=== PATIENT | female | born 1980 | race Caucasian/White ===

== ENCOUNTER 2016-11-28 09:03 | Emergency (ER) | payer OTHER ==
[2016-11-28] MEDS ORDERED: ONDANSETRON 4 MG/2 ML VIAL IVP ONE (09:36)
[2016-11-28] MEDS ORDERED: NS 1,000 ML IV ONE (09:36)
--- NOTE | 2016-11-28 09:38 | UCPHY ---
H & P Patient Type: New Time Seen by Provider: 11/28/16 09:28 HPI/ROS: Chief complaint: Right lower abdominal pain HPI: Patient presenting with 3 days of right lower abdominal pain. She has a history of ovarian cysts in the remote past and this feels somewhat similar. Has also had some periumbilical pain. Some nausea no vomiting, no diarrhea. No fevers or chills. Last menstrual. Was the end of last month however she has been irregular and has been having some increasing bloating and cramping over the last several months. Has never been . No vaginal discharge bleeding. ROS: 10 point Review of Systems is negative except as noted in the HPI. Physical exam: Gen: Awake, Alert, No Distress HEENT: Ears: Bilateral TMs are normal, no erythema or bulging. External auditory canals are clear. Nose: no rhinorrhea Eyes: PERRLA, EOMI Mouth: Moist mucosa Neck: Supple, no JVD Chest: nontender, lungs clear to auscultation Heart: S1, S2 normal, no murmur Abd: Soft, moderate right lower quadrant tenderness both at McBurney's point and in the right adnexa. No uterine tenderness, no left-sided abdominal tenderness. No upper abdominal tenderness, moderate voluntary guarding Back: no CVA tenderness, no midline tenderness Ext: no edema, non-tender Skin: no rash Neuro: CN II-XII intact, Sensation grossly intact, Strength 5/5 in bilateral upper and lower extremities - Family History Significant Family History: No pertinent family hx Constitutional: Initial Vital Signs Temperature (C) 37 C 11/28/16 09:35 Heart Rate 81 11/28/16 09:35 Respiratory Rate 14 11/28/16 09:35 Blood Pressure 130/78 H 11/28/16 09:35 O2 Sat (%) 97 11/28/16 09:35 Allergies/Adverse Reactions: No Known Allergies Allergy (Verified 11/28/16 09:31) Home Medications: Medication Instructions Recorded NK [No Known Home Meds] 11/28/16 Medical Decision Making - Diagnostics Imaging: Abdominal ultrasound: Appendix is not visualized. Interpreted by Dr. Ryan Pelvic ultrasound: Normal appearing ovaries and uterus. Interpreted by Dr. Ryan CT scan abdomen pelvis: Incidental 4 mm right lower lobe nodule. No obstruction, appendix is not visualized but there are no findings suggestive of acute appendicitis. There is no inflammation. Interpreted by Dr. Romo. ED Course/Re-evaluation: 36-year-old female presenting with right lower and right pelvic abdominal pain. Blood work is normal. Ultrasound and CT scan of her abdomen pelvis are unremarkable. There are no findings to explain her pain. She is feeling improved after IV medications here. Will discharge with follow-up with primary care physician instructions return if symptoms are not improving. - Data Points Laboratory Results: Laboratory Results 11/28/16 09:45 11/28/16 09:45 11/28/16 09:45 WBC 7.87 10^3/uL (3.80-9.50) RBC 5.18 10^6/uL (4.18-5.33) Hgb 15.5 g/dL (12.6-16.3) Hct 44.5 % (38.0-47.0) MCV 85.9 fL (81.5-99.8) MCH 29.9 pg (27.9-34.1) MCHC 34.8 g/dL (32.4-36.7) RDW 12.0 % (11.5-15.2) Plt Count 305 10^3/uL (150-400) MPV 10.5 fL (8.7-11.7) Neut % (Auto) 55.2 % (39.3-74.2) Lymph % (Auto) 33.4 % (15.0-45.0) Eddy % (Auto) 8.5 % (4.5-13.0) Eos % (Auto) 1.7 % (0.6-7.6) Baso % (Auto) 0.8 % (0.3-1.7) Nucleat RBC Rel Count 0.0 % (0.0-0.2) Absolute Neuts (auto) 4.35 10^3/uL (1.70-6.50) Absolute Lymphs (auto) 2.63 10^3/uL (1.00-3.00) Absolute Monos (auto) 0.67 10^3/uL (0.30-0.80) Absolute Eos (auto) 0.13 10^3/uL (0.03-0.40) Absolute Basos (auto) 0.06 10^3/uL (0.02-0.10) Absolute Nucleated RBC 0.00 10^3/uL (0-0.01) Immature Gran % 0.4 % (0.0-1.1) Immature Gran # 0.03 10^3/uL (0.00-0.10) Sodium 141 mEq/L (134-144) Potassium 3.8 mEq/L (3.5-5.2) Chloride 105 mEq/L (97-110) Carbon Dioxide 22 mEq/l (22-31) Anion Gap 14 mEq/L (8-16) BUN 12 mg/dL (7-23) Creatinine 0.7 mg/dL (0.6-1.0) Estimated GFR > 60 Glucose 96 mg/dL (70-100) Calcium 9.5 mg/dL (8.5-10.4) Beta HCG, Qual NEGATIVE Urine Color YELLOW Urine Appearance CLEAR Urine pH 6.5 (5.0-7.5) Ur Specific [place] <= 1.005 (1.002-1.030) Urine Protein NEGATIVE (NEGATIVE) Urine Ketones NEGATIVE (NEGATIVE) Urine Blood TRACE H (NEGATIVE) Urine Nitrate NEGATIVE (NEGATIVE) Urine Bilirubin NEGATIVE (NEGATIVE) Urine Urobilinogen 0.2 EU (0.2-1.0) Ur Leukocyte Esterase NEGATIVE (NEGATIVE) Urine RBC 1-3 /hpf (0-3) Urine WBC 0-1 /hpf (0-3) Ur Epithelial Cells 1+ /lpf (NONE-1+) Urine Bacteria 1+ H /hpf (NONE SEEN) Urine Glucose NEGATIVE (NEGATIVE) Medications Given: Discontinued Medications Morphine Sulfate (Morphine) 4 mg IVP ONCE ONE Stop: 11/28/16 09:37 Last Admin: 11/28/16 10:00 Dose: 4 mg Ondansetron HCl (Zofran) 4 mg IVP EDNOW ONE Stop: 11/28/16 09:37 Last Admin: 11/28/16 10:00 Dose: 4 mg Departure - Departure Disposition: Home, Routine, Self-Care Clinical Impression: Abdominal pain Condition: Good Instructions: Abdominal Pain (ED) Additional Instructions: Follow up with her primary care physician in 3-4 days for re-evaluation if symptoms are not improving. Go to the emergency department for increasing abdominal pain, fevers, chills, nausea, vomiting, diarrhea, chest pain, shortness of breath, or any other concerns. Referrals: Fercho Tinsley MD [Primary Care Provider] - As per Instructions - PQRS PQRS Measurement: NA
[2016-11-28 09:39] VITALS: RESP 14; TEMP 98.6; O2SAT 97
[2016-11-28 10:01] LABS: % IMMATURE GRANULYOCYTES 0.4 % (0.0-1.1); ABSOLUTE IMMATURE GRANULOCYTES 0.03 10^3/uL (0.00-0.10); ADD DIFF? NO; ADD MORPH? NO; ADD SCAN? NO; ATYPICAL LYMPHOCYTE FLAG 10 (0-99); FRAGMENT RBC FLAG 0 (0-99); HEMATOCRIT 44.5 % (38.0-47.0); HEMOGLOBIN 15.5 g/dL (12.6-16.3); LEFT SHIFT FLG 0 (0-99); LIPEMIA HEMOLYSIS FLAG 90 (0-99); MEAN CELL HEMOGLOBIN 29.9 pg (27.9-34.1); MEAN CELL HEMOGLOBIN CONCENTR. 34.8 g/dL (32.4-36.7); MEAN CELL VOLUME 85.9 fL (81.5-99.8); MEAN PLATELET VOLUME 10.5 fL (8.7-11.7); PLATELET CLUMPS FLAG 10 (0-99); PLATELET COUNT 305 10^3/uL (150-400); RED BLOOD CELL COUNT 5.18 10^6/uL (4.18-5.33)
[2016-11-28 10:14] LABS: ANION GAP 14 mEq/L (8-16); CALCIUM 9.5 mg/dL (8.5-10.4); CARBON DIOXIDE 22 mEq/l (22-31); CHLORIDE 105 mEq/L (97-110); CREATININE 0.7 mg/dL (0.6-1.0); GLOMERULAR FILTRATION RATE > 60; GLUCOSE 96 mg/dL (70-100); POTASSIUM 3.8 mEq/L (3.5-5.2); SODIUM 141 mEq/L (134-144)
[2016-11-28 10:18] LABS: COLOR YELLOW; LEUKOCYTE ESTERASE,URINE NEGATIVE (NEGATIVE); NITRITE,URINE NEGATIVE (NEGATIVE); PH,URINE 6.5 (5.0-7.5)
[2016-11-28 10:20] LABS: BACTERIA 1+ /hpf (NONE SEEN); WBC,URINE 0-1 /hpf (0-3)
--- NOTE | 2016-11-28 10:56 | US ---
Ultrasound Pelvis Complete (Transabdominal and Endovaginal) Including Duplex/Doppler Imaging History: Right lower quadrant abdominal pain. Pelvic pain. Technique: Transabdominal and endovaginal ultrasound images were obtained. Endovaginal images obtain ed for better evaluation of the uterine myometrium and adnexa. Duplex/Doppler imaging of adnexa. Findings: Uterus measures 8 x 4 x 5 cm. Endometrial thickness is 11 mm. Retroverted uterus. No defin ite uterine leiomyomata. Right ovary measures 2.7 x 3.3 x 1.8 cm. Left ovary measures 3.2 x 2.1 x 3.9 cm. Normal follicles in both ovaries. No adnexal masses. Minimal physiologic free fluid in the pelvis. Color Doppler flow to both ovaries without torsion. Impression: 1. Normal bilateral ovaries with normal follicles. 2. No ovarian torsion, adnexal masses or significant free fluid. 3. Retroverted uterus. Findings and recommendations discussed with Emergency Department physician, Tato Mccord MD at 10:54 hour, 11/28/2016. Final report concurs with initial preliminary interpretation.
[2016-11-28] MEDS ORDERED: IOPAMIDOL (ISOVUE-300) 100 ML BTL IV ONE (11:01)
--- NOTE | 2016-11-28 11:28 | US ---
Ultrasound Abdominal Limited at 1016 Hours History: Right lower quadrant pain, possible appendicitis. Technique: Graded compression with a high-frequency linear transducer. Findings: A normal appendix is not identified. There is no free fluid or loculated fluid. Only normal loops of bowel are identified. Impression: No indirect sonographic evidence for appendicitis. Findings discussed with Emergency Department physician, Tato Mccord MD, at 1047 hours, 2016. Final report concurs with initial preliminary interpretation.
--- NOTE | 2016-11-28 11:51 | CT ---
CT Abdomen and Pelvis With Contrast History: Right lower quadrant pain. Comparison: Pelvic and appendiceal ultrasound same day. CT abdomen and pelvis March 11, 2007. Technique: Axial contrast-enhanced images were obtained through the abdomen and pelvis following the uneventful administration of 90 mL Isovue-300 intravenous contrast. Creatinine is 0.7. Dose reduction techniques were utilized. Findings Abdomen: A noncalcified 4 mm right lower lobe nodule (series 3, image 38) is new since the comparison CT. Heart size is normal. The liver, gallbladder, spleen, pancreas, adrenals, and right kidney are normal. 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 There is moderate stool in the proximal colon. The colon and small bowel are normal caliber without e vidence of obstruction. A small bowel diverticulum is noted without evidence of diverticulitis. The a ppendix is not visible. There is no free fluid or air. A small fat-containing periumbilical hernia is present. The aorta is normal caliber. The IVC, hepatic, portal, splenic, and superior mesenteric veins are pat ent. No pathologically enlarged lymph nodes are identified. No aggressive osseous lesions are present. Pelvis: The bladder is normal. Uterine contour is normal. No adnexal masses are identified. There is trace free fluid. No aggressive osseous lesions are identified. Impression: 1. Moderate stool in the proximal colon. No acute findings in the abdomen or pelvis. 2. 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 4 mm right lower lobe nodule, new since the comparison CT. Unenhanced CT chest is recommended for follow up in one year. 4. Additional findings as above.. Findings discussed with Tato Mccord MD on 11/28/2016 at 11:37 a.m.
[2016-11-28 12:27] VITALS: BP 126/72; PULSE 82
== END 2016-11-28 12:21 | disposition home or self-care (01) ==
LOC: CED 09:03
DX: R10.31 Right lower quadrant pain (principal); R10.2 Pelvic and perineal pain
CPT/HCPCS: 74177-PO; 76705-PO; 76856-PO; 80048-PO; 81003-PO; 81015-PO; 84703-PO; 85025-PO; 96361-PO; 96374-PO; 96375-PO; 99203-PO; G0463-PO; J2405; Q9967

== ENCOUNTER → 2016-12-11 | Outpatient (CLI) | payer OTHER | LOC: FIMAGING 11:40 | PROVIDERS: ATTEND Family Medicine | DX: R91.1 Solitary pulmonary nodule (principal); R10.10 Upper abdominal pain, unspecified; K59.00 Constipation, unspecified ==